=== PATIENT | female | born 1950 | race Caucasian/White ===

== ENCOUNTER 2018-05-14 13:22 | Outpatient (CLI) | payer MEDICARE, MEDICAID | END 2018-05-14 23:59 | disposition home or self-care (01) | LOC: CARD 13:22 | PROVIDERS: ATTEND Internal Medicine Interventional Cardiology | DX: I82.409 Acute embolism and thrombosis of unspecified deep veins of unspecified lower extremity (principal); M79.662 Pain in left lower leg; M79.89 Other specified soft tissue disorders | CPT/HCPCS: 93971-TC ==

== ENCOUNTER 2018-07-03 17:52 | Emergency (ER) | payer MEDICARE, MEDICAID ==
[~2018-07-03] VITALS: Ht 157.5 cm; Wt 81.6 kg
--- NOTE | 2018-07-03 18:05 | NUR ---
PATIENT BIB FAMILY C/O DIZZINESS, WEAKNESS AND SLURRING OF SPEECH AROUND 4PM. PATIENT A/OX4, MALTESE SPEAKING ONLY. NO RESP. DISTRESS NOTED. VITALS STABLE, PLACED ON TAPPER OPERATOR. KEPT RESTED AND COMFORTABLE, WILL CONTINUE TO MONITOR. IV LINE ESTABLISHED ON LEFT AC G18. DR. GASPAR AT BEDSIDE FOR EVAL.
--- NOTE | 2018-07-03 18:05 | NUR ---
Neil nava in EDM - 07/03/18 at 1942 by EDGAR PATIENT CAME IN FOR DIZZINESS AND SLURRED SPEECH. PATIENT PLACED IN BED #2. ASSESSED FOR STROKE. DR. GASPAR AT BEDSIDE.
--- NOTE | 2018-07-03 18:06 | NUR ---
DR. GASPAR AT BEDSIDE FOR EVALUATION, CODE STROKE ACTIVATED.
--- NOTE | 2018-07-03 18:09 | NUR ---
PHARMACIST ARMANDO, LAB, RN, AND RT CAME. BLOOD DRAWS DONE.
[2018-07-03] MEDS ORDERED: IOHEXOL-350 100 ML VIAL IV ONE (18:10)
[2018-07-03] MEDS ORDERED: CT SWABBABLE VALVE TRANS SET 1 EA INFUS.SET MC ONE (18:11)
--- NOTE | 2018-07-03 18:12 | NUR ---
PATIENT TRANSFERRED TO CT FOR IMAGING. Addendum: 07/03/18 at 1944 by ROALCANCES ADDENDUM: TRANSFERRED VIA [facility]OT[facility].
[2018-07-03 18:14] LABS: BASOPHILS # (AUTO) 0.1 /CMM (0.0-0.2); EOSINOPHILS % (AUTO) 2.4 % (0.0-6.0); HEMATOCRIT 39 % (33-45); HEMOGLOBIN 13.3 g/dL (11.5-14.8); LYMPHOCYTES # (AUTO) 2.5 /CMM (0.8-4.8); LYMPHOCYTES % (AUTO) 36.5 % (20.0-44.0); MEAN CORPUSCULAR HGB CONC 34 g/dl (31.0-36.0); MEAN CORPUSCULAR VOLUME 90 fL (82-100); MONOCYTES # (AUTO) 0.4 /CMM (0.1-1.30); MONOCYTES % (AUTO) 6.2 % (2.0-12.0); NEUTROPHILS # (AUTO) 3.7 /CMM (1.8-8.9); NEUTROPHILS % (AUTO) 53.9 % (43.0-81.0); PLATELET COUNT (AUTO) 306 /CMM (150-450); RED BLOOD CELL COUNT(AUTO) 4.35 MIL/uL (4.0-5.2)
[2018-07-03 18:21] LABS: CALCIUM, SERUM 9.2 mg/dL (8.5-10.1); CARBON DIOXIDE 31 mmol/L (21-32); CHLORIDE 98 mmol/L (98-107); CREATININE 1.2 mg/dL (0.6-1.3); GLUCOSE 152 mg/dL (74-106); POTASSIUM 3.7 mmol/L (3.5-5.1); SODIUM SERUM 135 mmol/L (136-145); UREA NITROGEN, BLOOD 31 mg/dL (7-18)
--- NOTE | 2018-07-03 18:21 | NUR ---
REQUESTED TELE STOKE SOUND PRINTER TO PAGE NEURO FUR LINER IVETT
--- NOTE | 2018-07-03 18:25 | NUR ---
ADDENDUM: Intravenous End Time Documentation: NICARDIPINE DRIP START TIME: 1825 PM; END TIME 1920 PM; LAC # 18; PORT # 1
--- NOTE | 2018-07-03 18:25 | NUR ---
PATIENT ASSESSED BY DR. BACON VIA TELENEURO. GATITO NEVILLE DNP AT BEDSIDE. Addendum: 07/03/18 at 1910 by ROALCANCES ADDENDUM: PER HE WILL CALL DR. GASPAR FOR ORDERS.
[2018-07-03 18:28] LABS: CHOLESTEROL 388 mg/dL (<200); HDL CHOLESTEROL 24 mg/dL (40-60); LDL 210 mg/dL (0-99); TRIGLYCERIDES 734 mg/dL (30-150)
[2018-07-03] MEDS ORDERED: IV NS 0.9% 500 ML BAG IV ONE (18:30)
[2018-07-03] MEDS ORDERED: FENO160T PO (18:33)
[2018-07-03] MEDS ORDERED: METO25TA3 PO (18:33)
[2018-07-03] MEDS ORDERED: LOSA1TAB39 PO (18:33)
[2018-07-03] MEDS ORDERED: INSU100I14 SQ (18:33)
[2018-07-03] MEDS ORDERED: SPIR25TA6 PO (18:33)
[2018-07-03] MEDS ORDERED: ICOS1CAP PO (18:33)
[2018-07-03] MEDS ORDERED: FURO-144 PO (18:33)
[2018-07-03] MEDS ORDERED: RAMI2.5C2 PO (18:33)
[2018-07-03] MEDS ORDERED: INSU300I SQ (18:33)
[2018-07-03] MEDS ORDERED: ASPI-1152 PO (18:33)
[2018-07-03] MEDS ORDERED: NICARDIPINE IN DEXTROSE,ISO-OS 200 ML IV PRN (19:00)
[2018-07-03] MEDS ORDERED: ALTEPLASE 100 MG/VIAL VIAL IV ONE (19:00)
[2018-07-03] MEDS ORDERED: ALTEPLASE 100 MG in WATER FOR INJECTION,STERILE 100 ML IV ONE (19:00)
--- NOTE | 2018-07-03 19:03 | NUR ---
BP 181/70 HR 87 CARDENE INCREASED TO 7.5MG/HR. RECHECKED BP 152/67 HR 72.
--- NOTE | 2018-07-03 19:13 | NUR ---
FOR RN REPORT AT [facility]
--- NOTE | 2018-07-03 19:20 | NUR ---
BP 113/67 CARDENE DISCONTINUED PER GATITO NEVILLE. 7.4mg IVP slow over 5 minutes RFA G18 Infusion started at 191 (TPA) running at 66.2ML/HR Infusing while [facility]. RFA PIV G18; PORT #2.
[2018-07-03 19:30] VITALS: BP 141/71
--- NOTE | 2018-07-03 19:30 | NUR ---
REPORT GIVEN TO XIOMARA LAGOS AT [facility].
--- NOTE | 2018-07-03 19:45 | NUR ---
PATIENT GIVEN REPORT TO [facility] WITH ONGOING TPA 66.2ML/HR. PATIENT STABLE AT THIS TIME. VSS. NO RESPIRATORY DISTRESS NOTED.
== END 2018-07-03 19:56 | disposition short-term general hospital (02) ==
LOC: ER 17:55
DX: I63.9 Cerebral infarction, unspecified (principal); R47.81 Slurred speech; R53.1 Weakness; E11.9 Type 2 diabetes mellitus without complications; E78.5 Hyperlipidemia, unspecified; I10 Essential (primary) hypertension; I25.2 Old myocardial infarction; K21.9 Gastro-esophageal reflux disease without esophagitis; E66.01 Morbid (severe) obesity due to excess calories; Z86.718 Personal history of other venous thrombosis and embolism; Z98.890 Other specified postprocedural states; Z79.4 Long term (current) use of insulin; Z79.82 Long term (current) use of aspirin
CPT/HCPCS: 36415; 70450; 70496; 70498; 71045; 80048; 80061; 82962; 84484; 85025; 85730; 86850; 93005; 96365; 96368; 99291; J2997; J7040; Q9967